=== PATIENT | female | born 1990 | race Caucasian/White ===

== ENCOUNTER → 2017-12-30 18:47 | Outpatient (CLI) | payer OTHER, SELFPAY ==
--- NOTE | 2017-12-30 | DI.RAD.S_ITS ---
PROCEDURE: XR SHOULDER LT MIN 2V INDICATIONS: LEFT SHOULDER,ELBOW AND WRIST PAIN TECHNIQUE: 3 views of the shoulder were acquired. COMPARISON: None. FINDINGS: Bones: No fractures or dislocations. No suspicious bony lesions. Visualized ribs appear intact. Soft tissues: No suspicious soft tissue calcifications. IMPRESSION: Normal for age, source of current symptoms is not seen. Dictated by: Pillo Mccabe M.D. on 12/31/2017 at 9:59 Approved by: Pillo Mccabe M.D. on 12/31/2017 at 9:59
--- NOTE | 2017-12-30 | DI.RAD.S_ITS ---
PROCEDURE: XR WRIST LT MIN 3V INDICATIONS: LEFT SHOULDER,ELBOW AND WRIST PAIN TECHNIQUE: 4 views of the wrist were acquired. COMPARISON: None. FINDINGS: Bones: No fractures or dislocations. No suspicious bony lesions. Scaphoid view: Normal. Soft tissues: No suspicious soft tissue calcifications. IMPRESSION: No trauma found. The source of the is not seen. Dictated by: Pillo Mccabe M.D. on 12/31/2017 at 9:59 Approved by: Pillo Mccabe M.D. on 12/31/2017 at 9:59
--- NOTE | 2017-12-30 | DI.RAD.S_ITS ---
PROCEDURE: XR ELBOW LT MIN 3V INDICATIONS: LEFT SHOULDER,ELBOW AND WRIST PAIN, prior spider bite in 2010 with difficulty subsequently. TECHNIQUE: 3 views of the elbow were acquired. COMPARISON: None. FINDINGS: Bones: No fractures or dislocations. No suspicious bony lesions. Soft tissues: No elbow joint effusion. No suspicious soft tissue calcifications. IMPRESSION: No effusion found, normal osseous margins. Dictated by: Pillo Mccabe M.D. on 12/31/2017 at 10:00 Approved by: Pillo Mccabe M.D. on 12/31/2017 at 10:01
== END ==
PROVIDERS: PCP Registered Nurse Diabetes Educator; Visit Provider Physician Assistant Medical
DX: M25.512 Pain in left shoulder (principal); M25.522 Pain in left elbow; M25.532 Pain in left wrist
CPT/HCPCS: 73030; 73080; 73110

== ENCOUNTER 2019-01-12 17:06 | Emergency (ER) | payer OTHER, SELFPAY ==
[2019-01-12 17:14] VITALS: BP 121/72; PULSE 104; RESP 15; TEMP 36.7; O2SAT 100; BMI 20.6
--- NOTE | 2019-01-12 18:02 | ED_ITS ---
HPI - Female Genitourinary <Stephanie Velasquez PA-C - Last Filed: 01/12/19 21:43> General Chief complaint: Vaginal Bleeding Stated complaint: BLEEDING S/P SURGERY Time Seen by Provider: 01/12/19 18:00 Source: patient Mode of arrival: Ambulatory Limitations: no limitations History of Present Illness HPI Narrative: This 28-year-old female had an elective hysterectomy 1 month ago for pain and bleeding associated with endometriosis. She states scarring and bowel adhesions were found. She states that she did have an ED visit 2 weeks postop for a ruptured seroma. She states that drainage and spotting had completely stopped and last Wednesday she was released by her OBGYN to return to normal activity. States that side stitches were still visible but scarring visible in the midline. She states that she went back to work for a couple of hours today and has been more active the last few days but no particular strain. She felt blood today at work, went to the restroom and noted bright red blood had soaked her panty liner and a little bit in the toilet. She changed her pad and states she has had minimal spotting since then. She states she had cramps after the spotting, now minimal vaginal area pain but little now that she is sitting. She denies any fever. She denies any dysuria, frequency, urgency, hematuria and states her urinary symptoms and incontinence are actually better since the surgery. She denies any bowel habit changes or blood in the stools. No discharge or STD concerns. She does have a history of ectopic and had a tube removed due to this previously, states test negative prior to hysterectomy. She states both ovaries are intact. She states she was feeling a little bit lightheaded, otherwise asymptomatic now Related Data Allergies Allergy/AdvReac Type Severity Reaction Status Date / Time No Known Drug Allergies Allergy Verified 01/12/19 17:14 Review of Systems <Stephanie Velasquez PA-C - Last Filed: 01/12/19 21:43> Review of Systems ROS Unobtainable: All systems reviewed & are unremarkable except as noted in HPI and below Patient History <Stephanie Velasquez PA-C - Last Filed: 01/12/19 21:43> Medical History (Updated 01/12/19 @ 19:23 by Stephanie Fishfader, PA-C) Chronic pain of left upper extremity (Chronic) Compartment syndrome of left upper extremity (Resolved) Endometriosis (Chronic) Osteoarthritis (Chronic) Surgical History (Updated 01/12/19 @ 19:23 by Stephanie Velasquez PA-C) History of fasciotomy (Resolved) Status post breast augmentation (Resolved) Status post cholecystectomy (Resolved) tobacco type: vaping Substance Use Type: does not use Exam <Stephanie Velasquez PA-C - Last Filed: 01/12/19 21:43> Narrative Exam Narrative: GENERAL APPEARANCE: Patient sitting comfortably, in no distress. HEENT: PERRL, EOMI, conjunctiva pink NECK: Supple LUNGS: Clear to auscultation bilaterally. HEART: Rate and rhythm regular, normal S1 and S2, no S3 or S4. ABDOMEN: Soft, nontender, nondistended, bowel sounds present x 4 quadrants, no masses palpable, no hepatosplenomegaly. No CVAT EXTREMITIES: No edema NEUROLOGIC: Alert and oriented with normal speech, gait and coordination : Right external labia there is a small linear laceration, not actively bleed ing but loses minimally when touched. In the vaginal vault there is a modest amount of dark blood, no clear active bleeding after this is removed with a swab. No visible a source. No palpable mass or point tenderness Initial Vital Signs Initial Vital Signs: Vital Signs Temperature 98.0 F 01/12/19 17:14 Pulse Rate 104 H 01/12/19 17:14 Respiratory Rate 15 01/12/19 17:14 Blood Pressure 121/72 01/12/19 17:14 Pulse Oximetry 100 01/12/19 17:14 <Raina Hernandez DO - Last Filed: 01/13/19 01:00> Initial Vital Signs Initial Vital Signs: Vital Signs Temperature 98.0 F 01/12/19 17:14 Pulse Rate 104 H 01/12/19 17:14 Respiratory Rate 15 01/12/19 17:14 Blood Pressure 121/72 01/12/19 17:14 Pulse Oximetry 100 01/12/19 17:14 Course <Stephanie Velasquez PA-C - Last Filed: 01/12/19 21:43> Course Additional Information: I reviewed findings with professional programmer analyst [employer] Dr. Elizabeth who agrees reasonable to discharge patient home tonight to rest, no work, and will plan to have her personal photo tube assembler see her tomorrow morning. She will call 1st thing of for appointment. She agreed to return to ED if any acutely worsening symptoms this evening Orders Ordered: ED Orders 01/12/19 18:27 Urine Microscopic Stat 01/12/19 18:37 Complete Blood Count AUTO DIFF Stat Comprehensive Metabolic Panel Stat Partial Thromboplastin Time Stat Prothrombin Time INR Stat Vital Signs Vital signs: Vital Signs - 8 hr 01/12/19 17:14 01/12/19 20:09 Temperature 98.0 F Pulse Rate 104 H 83 Respiratory Rate 15 16 Blood Pressure 121/72 110/78 Pulse Oximetry 100 100 <Raina Hernandez DO - Last Filed: 01/13/19 01:00> Orders Ordered: ED Orders 01/12/19 18:27 Urine Microscopic Stat 01/12/19 18:37 Complete Blood Count AUTO DIFF Stat Comprehensive Metabolic Panel Stat Partial Thromboplastin Time Stat Prothrombin Time INR Stat Vital Signs Vital signs: Vital Signs - 8 hr 01/12/19 17:14 01/12/19 20:09 Temperature 98.0 F Pulse Rate 104 H 83 Respiratory Rate 15 16 Blood Pressure 121/72 110/78 Pulse Oximetry 100 100 MDM - Female Genitourinary <Stephanie Velasquez PA-C - Last Filed: 01/12/19 21:43> Lab Data Result diagrams: 01/12/19 18:37 01/12/19 18:37 Labs: Lab Results 01/12/19 01/12/19 01/12/19 Range/Units 18:27 18:37 18:37 WBC 8.4 (4.5-11.0) X10^3/uL RBC 4.08 (4.0-5.2) X10^6/uL Hgb 12.6 (12.0-16.0) g/dL Hct 36.6 (36-46) % MCV 89.8 (80-100) fL MCH 30.8 (26-34) PG MCHC 34.4 (30-36) % RDW 13.3 (11.6-14.8) % Plt Count 324 (150-400) X10^3/uL Neut % (Auto) 60.2 (50-75) % Lymph % (Auto) 32.8 (25-40) % [place] % (Auto) 5.4 (3-14) % Eos % (Auto) 1.2 L (2-4) % Baso % (Auto) 0.4 (0-2) % Neut # (Auto) 5000 (4988-9781) /uL Lymph # (Auto) 2700 (0062-2086) /uL [place] # (Auto) 400 (0-900) /uL Eos # (Auto) 100 (0-450) /uL Baso # (Auto) 0 (0-100) /uL PT (10.1-12.7) SECONDS INR (0.9-1.3) APTT (26.4-36.2) SECONDS Sodium 141 (137-145) mmol/L Potassium 3.9 (3.4-5.1) mmol/L Chloride 106 (98-107) mmol/L Carbon Dioxide 24 (22-32) mmol/L BUN 10 (7-17) mg/dL Creatinine 0.60 (0.52-1.04) mg/dL Estimated GFR > 60.0 (>60) mL/min BUN/Creatinine Ratio 16.7 (6-22) Glucose 89 (70-100) mg/dL Calcium 9.5 (8.4-10.2) mg/dL Total Bilirubin 0.5 (0.2-1.3) mg/dL AST 28 (15-46) IU/L ALT 24 (9-52) IU/L Alkaline Phosphatase 49 (38-126) U/L Total Protein 7.8 (6.3-8.2) g/dL Albumin 5.0 (3.5-5.0) g/dL Globulin 2.8 (1.7-4.1) g/dL Albumin/Globulin Ratio 1.8 (1.0-2.8) Urine RBC None seen (0-5/HPF) Urine WBC 1-5/hpf (0-5/HPF) Ur Squamous Epith Cells 5-10 /hpf H (0-5/HPF) Amorphous Sediment 1+ Urine Bacteria Few (2-10) H (None) Ur Culture Indicated? Cult not indicated 01/12/19 Range/Units 18:37 WBC (4.5-11.0) X10^3/uL RBC (4.0-5.2) X10^6/uL Hgb (12.0-16.0) g/dL Hct (36-46) % MCV (80-100) fL MCH (26-34) PG MCHC (30-36) % RDW (11.6-14.8) % Plt Count (150-400) X10^3/uL Neut % (Auto) (50-75) % Lymph % (Auto) (25-40) % [place] % (Auto) (3-14) % Eos % (Auto) (2-4) % Baso % (Auto) (0-2) % Neut # (Auto) (0971-4926) /uL Lymph # (Auto) (8491-5478) /uL [place] # (Auto) (0-900) /uL Eos # (Auto) (0-450) /uL Baso # (Auto) (0-100) /uL PT 12.0 (10.1-12.7) SECONDS INR 1.0 (0.9-1.3) APTT 36 (26.4-36.2) SECONDS Sodium (137-145) mmol/L Potassium (3.4-5.1) mmol/L Chloride (98-107) mmol/L Carbon Dioxide (22-32) mmol/L BUN (7-17) mg/dL Creatinine (0.52-1.04) mg/dL Estimated GFR (>60) mL/min BUN/Creatinine Ratio (6-22) Glucose (70-100) mg/dL Calcium (8.4-10.2) mg/dL Total Bilirubin (0.2-1.3) mg/dL AST (15-46) IU/L ALT (9-52) IU/L Alkaline Phosphatase (38-126) U/L Total Protein (6.3-8.2) g/dL Albumin (3.5-5.0) g/dL Globulin (1.7-4.1) g/dL Albumin/Globulin Ratio (1.0-2.8) Urine RBC (0-5/HPF) Urine WBC (0-5/HPF) Ur Squamous Epith Cells (0-5/HPF) Amorphous Sediment Urine Bacteria (None) Ur Culture Indicated? Urine Dip Bedside Urine Glucose Negative Bedside Urine Bilirubin - Negative Bedside Urine Ketone - Negative Urine Specific [place] 1.005 Bedside Urine Occult Blood +++ Bedside Urine pH 6.0 Bedside Urine Protein - Negative Bedside Urine Urobilinogen - Negative Bedside Urine Nitrite - Negative Bedside Urine Leukocytes ++ 125 Esterase <Raina Hernandez DO - Last Filed: 01/13/19 01:00> Lab Data Labs: Lab Results 01/12/19 01/12/19 01/12/19 Range/Units 18:27 18:37 18:37 WBC 8.4 (4.5-11.0) X10^3/uL RBC 4.08 (4.0-5.2) X10^6/uL Hgb 12.6 (12.0-16.0) g/dL Hct 36.6 (36-46) % MCV 89.8 (80-100) fL MCH 30.8 (26-34) PG MCHC 34.4 (30-36) % RDW 13.3 (11.6-14.8) % Plt Count 324 (150-400) X10^3/uL Neut % (Auto) 60.2 (50-75) % Lymph % (Auto) 32.8 (25-40) % [place] % (Auto) 5.4 (3-14) % Eos % (Auto) 1.2 L (2-4) % Baso % (Auto) 0.4 (0-2) % Neut # (Auto) 5000 (8282-0022) /uL Lymph # (Auto) 2700 (4962-5219) /uL [place] # (Auto) 400 (0-900) /uL Eos # (Auto) 100 (0-450) /uL Baso # (Auto) 0 (0-100) /uL PT (10.1-12.7) SECONDS INR (0.9-1.3) APTT (26.4-36.2) SECONDS Sodium 141 (137-145) mmol/L Potassium 3.9 (3.4-5.1) mmol/L Chloride 106 (98-107) mmol/L Carbon Dioxide 24 (22-32) mmol/L BUN 10 (7-17) mg/dL Creatinine 0.60 (0.52-1.04) mg/dL Estimated GFR > 60.0 (>60) mL/min BUN/Creatinine Ratio 16.7 (6-22) Glucose 89 (70-100) mg/dL Calcium 9.5 (8.4-10.2) mg/dL Total Bilirubin 0.5 (0.2-1.3) mg/dL AST 28 (15-46) IU/L ALT 24 (9-52) IU/L Alkaline Phosphatase 49 (38-126) U/L Total Protein 7.8 (6.3-8.2) g/dL Albumin 5.0 (3.5-5.0) g/dL Globulin 2.8 (1.7-4.1) g/dL Albumin/Globulin Ratio 1.8 (1.0-2.8) Urine RBC None seen (0-5/HPF) Urine WBC 1-5/hpf (0-5/HPF) Ur Squamous Epith Cells 5-10 /hpf H (0-5/HPF) Amorphous Sediment 1+ Urine Bacteria Few (2-10) H (None) Ur Culture Indicated? Cult not indicated 01/12/19 Range/Units 18:37 WBC (4.5-11.0) X10^3/uL RBC (4.0-5.2) X10^6/uL Hgb (12.0-16.0) g/dL Hct (36-46) % MCV (80-100) fL MCH (26-34) PG MCHC (30-36) % RDW (11.6-14.8) % Plt Count (150-400) X10^3/uL Neut % (Auto) (50-75) % Lymph % (Auto) (25-40) % [place] % (Auto) (3-14) % Eos % (Auto) (2-4) % Baso % (Auto) (0-2) % Neut # (Auto) (9031-8377) /uL Lymph # (Auto) (1164-9775) /uL [place] # (Auto) (0-900) /uL Eos # (Auto) (0-450) /uL Baso # (Auto) (0-100) /uL PT 12.0 (10.1-12.7) SECONDS INR 1.0 (0.9-1.3) APTT 36 (26.4-36.2) SECONDS Sodium (137-145) mmol/L Potassium (3.4-5.1) mmol/L Chloride (98-107) mmol/L Carbon Dioxide (22-32) mmol/L BUN (7-17) mg/dL Creatinine (0.52-1.04) mg/dL Estimated GFR (>60) mL/min BUN/Creatinine Ratio (6-22) Glucose (70-100) mg/dL Calcium (8.4-10.2) mg/dL Total Bilirubin (0.2-1.3) mg/dL AST (15-46) IU/L ALT (9-52) IU/L Alkaline Phosphatase (38-126) U/L Total Protein (6.3-8.2) g/dL Albumin (3.5-5.0) g/dL Globulin (1.7-4.1) g/dL Albumin/Globulin Ratio (1.0-2.8) Urine RBC (0-5/HPF) Urine WBC (0-5/HPF) Ur Squamous Epith Cells (0-5/HPF) Amorphous Sediment Urine Bacteria (None) Ur Culture Indicated? Urine Dip Bedside Urine Glucose Negative Bedside Urine Bilirubin - Negative Bedside Urine Ketone - Negative Urine Specific [place] 1.005 Bedside Urine Occult Blood +++ Bedside Urine pH 6.0 Bedside Urine Protein - Negative Bedside Urine Urobilinogen - Negative Bedside Urine Nitrite - Negative Bedside Urine Leukocytes ++ 125 Esterase Discharge Plan Departure Patient Disposition: Home Clinical Impression: Vaginal bleeding, S/P hysterectomy Discharge Date/Time: 01/12/19 20:10 Instructions: DI for Vaginal Bleeding Activity Restrictions/Additional Instructions: You appear to have a small amount of vaginal bleeding. I do not see a clear source tonight along her incision site. You also have a small cut, probably from shaving, that was bleeding slightly. As we talked about, you should return to the closest ED if you have any acutely worsening of your bleeding tonight, or you are feeling faint or have other new symptoms. Otherwise, I have spoken with Dr. Elizabeth, who was on-call for silk screen frame assembler at the [facility]. He would like you to see Dr. Barroso tomorrow. He would like you to call and talk with Angela tomorrow at 8:00 a.m. and let them know that he wanted you to be seen. St ay home and rest tonight (no work), and please discuss when to return to [facility] after you have had a repeat exam. Referrals: [facility] [Outside]
[2019-01-12 18:37] LABS: RBC Urine None Seen (0-5/HPF)
[2019-01-12 18:43] LABS: Add Manual Diff / Slide Review NO; Basophils Absolute Auto 0 /uL (0-100); Basophils Percent Auto 0.4 % (0-2); Eosinophils Absolute Auto 100 /uL (0-450); Eosinophils Percent Auto 1.2 % (2-4); Hematocrit 36.6 % (36-46); Hemoglobin 12.6 g/dL (12.0-16.0); Lymphocytes Absolute Auto 2700 /uL (1100-4500); Lymphocytes Percent Auto 32.8 % (25-40); Mean Corpuscular HGB Conc 34.4 % (30-36); Mean Corpuscular Hemoglobin 30.8 PG (26-34); Mean Corpuscular Volume 89.8 fL (80-100); Monocytes Absolute Auto 400 /uL (0-900); Monocytes Percent Auto 5.4 % (3-14); Neutrophils Absolute Auto 5000 /uL (1500-7000); Neutrophils Percent Auto 60.2 % (50-75); Platelet Count 324 X10^3/uL (150-400); Red Blood Cell Count 4.08 X10^6/uL (4.0-5.2); Red Cell Distribution Width 13.3 % (11.6-14.8); White Blood Cell Count 8.4 X10^3/uL (4.5-11.0)
[2019-01-12 18:49] LABS: Amorphous Sediment Urine 1+; Bacteria Urine Few (2-10); Squamous Epithelial Cell Urine 5-10 /HPF (0-5/HPF); WBC Urine 1-5/HPF (0-5/HPF)
[2019-01-12 18:50] LABS: Culture Indicated Urine Cult Not Indicated
--- NOTE | 2019-01-12 18:52 | CM.MNRNOTE ---
s/p hysterectomy 4 weeks ago, reports, while working had an episode gush of vaginal bleeding (spoonful), denies fever or vomiting.
[2019-01-12 18:54] LABS: PTT Partial Thromboplastin Tim 36 SECONDS (26.4-36.2)
[2019-01-12 18:55] LABS: Alanine Aminotransferase 24 IU/L (9-52); Albumin Globulin Ratio 1.8 (1.0-2.8); Alkaline Phosphatase 49 U/L (38-126); Aspartate Aminotransferase 28 IU/L (15-46); BUN Creatinine Ratio 16.7 (6-22); Bilirubin Total 0.5 mg/dL (0.2-1.3); Blood Urea Nitrogen 10 mg/dL (7-17); Calcium 9.5 mg/dL (8.4-10.2); Carbon Dioxide 24 mmol/L (22-32); Chloride 106 mmol/L (98-107); Estimated Glomerular Filt Rate > 60.0 mL/min (>60); Globulin 2.8 g/dL (1.7-4.1); Glucose 89 mg/dL (70-100); HEMOLYSIS < 15 (0-50); Potassium 3.9 mmol/L (3.4-5.1); Sodium 141 mmol/L (137-145); Total Protein 7.8 g/dL (6.3-8.2)
[2019-01-12 20:09] VITALS: BP 110/78; PULSE 83; RESP 16; O2SAT 100
== END 2019-01-12 20:10 | disposition home or self-care (01) ==
PROVIDERS: Emergency Provider Internal Medicine; Family Provider Registered Nurse Diabetes Educator; PCP Registered Nurse Diabetes Educator
DX: N93.9 Abnormal uterine and vaginal bleeding, unspecified (principal); Z90.710 Acquired absence of both cervix and uterus
CPT/HCPCS: 36415; 80053; 81003; 81015; 85025; 85610; 85730; 99283